=== PATIENT | male | born 1955 | race Caucasian/White ===

== ENCOUNTER 2018-07-22 06:35 | Day surgery (SDC) | payer MEDICAID ==
[~2018-07-22] VITALS: Ht 175.3 cm; Wt 113.9 kg
[~2018-07-22 06:35] MED LIST: AMLO10TA4 PO; ATOR40TA70 PO; BENA40TA9 PO; CYCL5TAB PO; IBUP-1653 PO; METF-414 PO; METO100T16 PO; TAMS0.4C31 PO
[2018-07-22] MEDS ORDERED: FURO-152 PO (08:12)
[2018-07-22] MEDS ORDERED: ASPI-1159 PO (08:12)
[2018-07-22] MEDS ORDERED: CLOP75TA16 PO (08:12)
[2018-07-22] MEDS ORDERED: IODIXANOL 320MG/ML 100 ML BOTTLE IV ONE ×2 (08:38→11:06)
[2018-07-22 08:52] LABS: HEMATOCRIT 43.5 % (42.0-52.0); HEMOGLOBIN 14.6 g/dL (14.0-18.0); MEAN CORPUSCULAR HEMOGLOBIN 28.1 pg (28.0-32.0); MEAN CORPUSCULAR VOLUME 83.6 fL (80.0-94.0); PLATELET 286 x1000/uL (130-400); RED BLOOD CELL COUNT 5.21 mill/uL (4.7-6.1); RED CELL DISTRIBUTION WIDTH 14.1 % (11.6-14.6)
[2018-07-22 09:02] LABS: CHLORIDE 101 mEq/L (98-107)
[2018-07-22 09:04] LABS: INR 1.1; PARTIAL THROMBOPLASTIN TIME 27.6 sec (23.4-31.0); PROTHROMBIN TIME 10.8 sec (9.1-11.1)
[2018-07-22] MEDS ORDERED: KCL 20MEQ/100ML PREMIX 100 ML IV NR (09:45)
[2018-07-22] MEDS ORDERED: MIDAZOLAM HCL 2 MG/2 ML VIAL ONE ×2 (09:59→11:08)
[2018-07-22] MEDS ORDERED: FENTANYL CITRATE/PF 50MCG/ML 2ML VIAL ONE ×2 (09:59→11:08)
[2018-07-22] MEDS ORDERED: LIDOCAINE HCL 1% 20ML VIAL (Pyxis) INJ ONE ×2 (10:17→11:05)
[2018-07-22] MEDS ORDERED: ACETAMINOPHEN 325MG TABLET PO PRN (10:45)
[2018-07-22] MEDS ORDERED: MORPHINE SULFATE 4 MG/ML CPJ (NOT FOR IM USE) IV PRN (10:45)
[2018-07-22] MEDS ORDERED: ONDANSETRON HCL 4MG/2ML INJ IV PRN (10:45)
[2018-07-22] MEDS ORDERED: IOHEXOL-300 100 ML BOTTLE ONE (11:06)
[2018-07-22] MEDS ORDERED: NICARDIPINE 100MCG/ML 10ML VIAL (CATH LAB) IV ONE (13:19)
[2018-07-22] MEDS ORDERED: NITROGLYCERIN 50MCG/ML 10ML VIAL (CATH LAB) IV ONE (13:19)
[2018-07-22] MEDS ORDERED: HEPARIN SODIUM 1,000 UNIT/1ML VIAL IV ONE (14:30)
== END 2018-07-22 15:00 | disposition home or self-care (01) ==
LOC: CCL 06:35
PROVIDERS: ATTEND Internal Medicine Cardiovascular Disease
DX: R07.9 Chest pain, unspecified (principal); Z95.5 Presence of coronary angioplasty implant and graft; I10 Essential (primary) hypertension; E78.5 Hyperlipidemia, unspecified; E11.9 Type 2 diabetes mellitus without complications; E66.01 Morbid (severe) obesity due to excess calories
CPT/HCPCS: 36415; 80048; 85027; 85610; 85730; 93005; 93458; C1769; C1887; C1893; J1644; J2250; J3010; J3480; J3490; Q9967

== ENCOUNTER 2019-01-17 08:11 | Day surgery (SDC) | payer MEDICAID ==
[~2019-01-17] VITALS: Ht 175.3 cm; Wt 110.2 kg
[~2019-01-17 08:11] MED LIST changes: +ASPI-1393 PO; +CLOP75TA4 PO; +FURO-152 PO
[2019-01-17] MEDS ORDERED: NICARDIPINE 100MCG/ML 10ML VIAL (CATH LAB) IV ONE (10:30)
[2019-01-17] MEDS ORDERED: HEPARIN SODIUM 1,000 UNIT/1ML VIAL IV ONE (10:30)
[2019-01-17] MEDS ORDERED: NITROGLYCERIN 50MCG/ML 10ML VIAL (CATH LAB) IV ONE (10:30)
[2019-01-17] MEDS ORDERED: PHENYLEPHRINE 100MCG/ML 10ML VIAL (CATH LAB) IV ONE (10:30)
[2019-01-17 12:34] LABS: HEMATOCRIT 44.1 % (42.0-52.0); HEMOGLOBIN 15.2 g/dL (14.0-18.0); MEAN CORPUSCULAR HEMOGLOBIN 30.2 pg (28.0-32.0); MEAN CORPUSCULAR VOLUME 87.5 fL (80.0-94.0); PLATELET 259 x1000/uL (130-400); RED BLOOD CELL COUNT 5.04 mill/uL (4.7-6.1); RED CELL DISTRIBUTION WIDTH 13.8 % (11.6-14.6)
[2019-01-17 12:38] LABS: INR 1.1; PARTIAL THROMBOPLASTIN TIME 28.6 sec (23.4-31.0); PROTHROMBIN TIME 11.1 sec (9.6-11.0)
[2019-01-17] MEDS ORDERED: DOXA4TAB3 MT (12:39)
[2019-01-17] MEDS ORDERED: RANI150C12 MT (12:39)
[2019-01-17 12:44] LABS: CHLORIDE 103 mEq/L (98-107)
[2019-01-17] MEDS ORDERED: IOHEXOL-300 100 ML BOTTLE ONE (13:41)
[2019-01-17] MEDS ORDERED: LIDOCAINE HCL 1% 20ML VIAL (Pyxis) INJ ONE (13:42)
[2019-01-17] MEDS ORDERED: MIDAZOLAM HCL 2 MG/2 ML VIAL ONE (13:53)
[2019-01-17] MEDS ORDERED: FENTANYL CITRATE/PF 50MCG/ML 2ML VIAL ONE (13:53)
[2019-01-17] MEDS ORDERED: ONDANSETRON HCL 4MG/2ML INJ IV PRN (15:00)
[2019-01-17] MEDS ORDERED: ACETAMINOPHEN 325MG TABLET PO PRN (15:00)
== END 2019-01-17 18:20 | disposition home or self-care (01) ==
LOC: CCL 08:11
PROVIDERS: ATTEND Internal Medicine Cardiovascular Disease
DX: R07.89 Other chest pain (principal); R06.02 Shortness of breath; R94.31 Abnormal electrocardiogram [ECG] [EKG]; I10 Essential (primary) hypertension; E11.9 Type 2 diabetes mellitus without complications; E78.5 Hyperlipidemia, unspecified; I25.10 Atherosclerotic heart disease of native coronary artery without angina pectoris; E66.01 Morbid (severe) obesity due to excess calories; Z86.73 Personal history of transient ischemic attack (TIA), and cerebral infarction without residual deficits; Z79.899 Other long term (current) drug therapy; Z68.35 Body mass index [BMI] 35.0-35.9, adult; Z88.8 Allergy status to other drugs, medicaments and biological substances; Z79.82 Long term (current) use of aspirin
CPT/HCPCS: 36415; 80048; 85027; 85610; 85730; 93458; C1769; C1887; C1893; J1644; J2250; J2370; J3010; J3490; Q9967

== ENCOUNTER 2022-04-01 10:24 | Inpatient (IN) | payer MEDICARE, MEDICAID ==
[~2022-04-01] VITALS: Ht 177.8 cm; Wt 90.3 kg
[~2022-04-01 10:24] MED LIST changes: -ASPI-1393 PO; +ASPI-1497 PO; -BENA40TA9 PO; +BENA40TA91 PO; +CLOP-31 PO; -CLOP75TA4 PO; -CYCL5TAB PO; +DOXA4TAB3 MT; -FURO-152 PO; -METF-414 PO; +RANI150C12 MT
[2022-04-01] MEDS ORDERED: SODIUM CHLORIDE 0.9% 1,000 ML IV ONE (11:15)
[2022-04-01 11:27] LABS: BASOPHILS % 1.1 % (0.0-2.0); EOSINOPHILS % 0.4 % (0.0-5.0); HEMATOCRIT. 37.5 % (42.0-52.0); HEMOGLOBIN. 13.4 g/dL (14.0-18.0); LYMPHOCYTES % 16.1 % (20.0-50.0); MEAN CORPUSCULAR HEMOGLOBIN 31.3 pg (28.0-32.0); MEAN CORPUSCULAR VOLUME 87.3 fL (80.0-94.0); MONOCYTES % 6.7 % (2.0-8.0); NEUTROPHILS % 75.7 % (40.0-76.0); PLATELET 276 x1000/uL (130-400); RED BLOOD CELL COUNT 4.29 mill/uL (4.7-6.1); RED CELL DISTRIBUTION WIDTH 13.2 % (11.6-14.6)
[2022-04-01 11:39] LABS: CHLORIDE 102 mEq/L (98-107); PROTHROMBIN TIME 11.1 sec (9.6-11.0)
[2022-04-01] MEDS ORDERED: VANCOMYCIN 1G PREMIX 200 ML IV ONE (12:00)
[2022-04-01] MEDS ORDERED: PIPERACILLIN/TAZ 3.375G PREMIX 50 ML IV ONE (12:00)
[2022-04-01] MEDS ORDERED: SODIUM CHLORIDE 0.9% 1000ML BAG (SEPSIS BOLUS) IV ONE (12:15)
[2022-04-01 13:06] LABS: CLARITY URINE CLEAR (CLEAR); COLOR URINE DARK YELLOW (YELLOW); KETONES URINE TRACE (NEGATIVE); LEUKOCYTE ESTERASE URINE NEGATIVE (NEGATIVE); NITRITE URINE NEGATIVE (NEGATIVE); OCCULT BLOOD URINE NEGATIVE (NEGATIVE); PROTEIN URINE 1+ (NEGATIVE)
[2022-04-01 15:57] VITALS: BP 165/85
[2022-04-01 16:14] VITALS: BP 160/85
[2022-04-01] MEDS ORDERED: METF-874 PO (16:26)
[2022-04-01] MEDS: METFORMIN HCL 500MG TABLET PO SCH (17:40)
[2022-04-01] MEDS: ASPIRIN 81MG TABLET PO SCH (19:15)
[2022-04-01] MEDS ORDERED: DEXTROSE 50% WATER 50ML SYRINGE IV PRN (19:15)
[2022-04-01 20:00] VITALS: BP 162/84
[2022-04-01] MEDS: ENOXAPARIN 40MG/0.4ML SYR SUBCUT SCH (20:55)
[2022-04-01] MEDS: HYDROCODONE/ACETAMINOPHEN 5/325MG TABLET PO PRN (20:56)
[2022-04-01] MEDS: METOPROLOL TARTRATE 50MG TABLET PO SCH (20:56)
[2022-04-01] MEDS: SODIUM CHLORIDE 0.9% 1,000 ML IV SCH (20:56)
[2022-04-01] MEDS: CEFTRIAXONE 1,000 MG in DEXTROSE 5% WATER 50 ML IV SCH (20:56)
[2022-04-01] MEDS: BLOOD SUGAR DIAGNOSTIC STRIP TEST SCH (20:57)
[2022-04-01] MEDS: CLONIDINE 0.1MG TABLET PO PRN (20:57)
[2022-04-01] MEDS: INSULIN LISPRO 100 UNITS/ML SUBCUT SCH (21:00)
[2022-04-01] MEDS ORDERED: KETOROLAC 15MG/ML VIAL IV PRN (22:00)
[2022-04-02] VITALS: BP_SYST 146; BP_SYST 147; BP_DIAS 77; BP_DIAS 78
[2022-04-02 04:00] VITALS: BP 139/75
[2022-04-02] MEDS: BLOOD SUGAR DIAGNOSTIC STRIP TEST SCH ×4 (05:36→21:35)
[2022-04-02] MEDS: INSULIN LISPRO 100 UNITS/ML SUBCUT SCH ×4 (05:36→21:00)
[2022-04-02 08:00] VITALS: BP 190/92
[2022-04-02 08:18] LABS: EOSINOPHILS % 1.6 % (0.0-5.0); HEMATOCRIT. 33.8 % (42.0-52.0); HEMOGLOBIN. 12.1 g/dL (14.0-18.0); LYMPHOCYTES % 20.8 % (20.0-50.0); MEAN CORPUSCULAR VOLUME 86.9 fL (80.0-94.0); MONOCYTES % 8.2 % (2.0-8.0); NEUTROPHILS % 68.4 % (40.0-76.0); PLATELET 247 x1000/uL (130-400); RED BLOOD CELL COUNT 3.88 mill/uL (4.7-6.1); RED CELL DISTRIBUTION WIDTH 12.9 % (11.6-14.6)
[2022-04-02] MEDS ORDERED: NALOXONE HCL 0.4MG/ML VIAL IV PRN (08:30)
[2022-04-02] MEDS: SODIUM CHLORIDE 0.9% 1,000 ML IV SCH ×2 (08:35→21:44)
[2022-04-02] MEDS: ASPIRIN 81MG TABLET PO SCH (08:51)
[2022-04-02] MEDS: METFORMIN HCL 500MG TABLET PO SCH ×2 (08:51→16:49)
[2022-04-02] MEDS: METOPROLOL TARTRATE 50MG TABLET PO SCH ×2 (08:52→21:43)
[2022-04-02] MEDS: AMLODIPINE 10MG TABLET PO SCH (08:52)
[2022-04-02] MEDS: CLONIDINE 0.1MG TABLET PO PRN ×2 (08:54→16:47)
[2022-04-02] MEDS: POLYETHYLENE GLYCOL 3350 (17GM) 1 DOSE PACK PO SCH (09:31)
[2022-04-02 09:40] LABS: CHLORIDE 102 mEq/L (98-107)
[2022-04-02 09:49] LABS: HDL CHOLESTEROL 32 mg/dL (40-59); LDL CHOLESTEROL 33 mg/dL (5-100)
[2022-04-02 12:00] VITALS: BP 158/73
[2022-04-02] MEDS ORDERED: POTASSIUM CHLORIDE 20MEQ TABLET SR PO NR (15:45)
[2022-04-02 16:00] VITALS: BP 174/70
[2022-04-02] MEDS: HYDROCODONE/ACETAMINOPHEN 5/325MG TABLET PO PRN ×2 (16:49→22:37)
[2022-04-02 20:00] VITALS: BP_SYST 149; BP_SYST 177; BP_DIAS 84; BP_DIAS 99
[2022-04-02] MEDS: ENOXAPARIN 40MG/0.4ML SYR SUBCUT SCH (21:43)
[2022-04-02] MEDS: HYDRALAZINE HCL 50MG TABLET PO SCH (21:43)
[2022-04-02] MEDS: CEFTRIAXONE 1,000 MG in DEXTROSE 5% WATER 50 ML IV SCH (21:43)
[2022-04-02] MEDS: ACETAMINOPHEN 325MG TABLET PO PRN (22:40)
[2022-04-03] VITALS: BP 149/99
[2022-04-03] MEDS: ACETAMINOPHEN 325MG TABLET PO PRN ×2 (02:46→13:19)
[2022-04-03] MEDS: HYDROCODONE/ACETAMINOPHEN 5/325MG TABLET PO PRN ×3 (02:46→13:19)
[2022-04-03 04:00] VITALS: BP 144/84
[2022-04-03] MEDS: BLOOD SUGAR DIAGNOSTIC STRIP TEST SCH ×2 (05:12→12:10)
[2022-04-03] MEDS: INSULIN LISPRO 100 UNITS/ML SUBCUT SCH ×2 (05:12→12:40)
[2022-04-03 08:00] VITALS: BP 184/80
[2022-04-03] MEDS: CLONIDINE 0.1MG TABLET PO PRN (08:26)
[2022-04-03] MEDS: HYDRALAZINE HCL 50MG TABLET PO SCH (08:26)
[2022-04-03] MEDS: METFORMIN HCL 500MG TABLET PO SCH (08:27)
[2022-04-03] MEDS: METOPROLOL TARTRATE 50MG TABLET PO SCH (08:27)
[2022-04-03] MEDS: AMLODIPINE 10MG TABLET PO SCH (08:27)
[2022-04-03] MEDS: ASPIRIN 81MG TABLET PO SCH (08:27)
[2022-04-03] MEDS: POLYETHYLENE GLYCOL 3350 (17GM) 1 DOSE PACK PO SCH (08:28)
[2022-04-03 10:24] VITALS: BP 184/80
[2022-04-03 12:00] VITALS: BP 139/71
[2022-04-03 13:19] VITALS: BP 139/71
[2022-04-03] MEDS ORDERED: HYDRALAZINE HCL 100MG TABLET PO SCH (15:00)
== END 2022-04-03 14:20 | disposition home or self-care (01) | DRG 637 ==
LOC: ER 10:24 → EDBEDREQ 11:04 → EDBEDREQTM 11:54 → EDBEDREQSVC 11:54 → 8WST 13:45 → EDBEDREQ 13:58 → EDBEDREQTM 13:58 → ENRESERV 14:46
PROVIDERS: ADMIT Internal Medicine; ATTEND Internal Medicine
DX: E11.9 Type 2 diabetes mellitus without complications (principal); N17.0 Acute kidney failure with tubular necrosis; E87.6 Hypokalemia; I10 Essential (primary) hypertension; Z86.73 Personal history of transient ischemic attack (TIA), and cerebral infarction without residual deficits; Z88.8 Allergy status to other drugs, medicaments and biological substances; Z79.899 Other long term (current) drug therapy
CPT/HCPCS: 36415; 71045; 80053; 80061; 81003; 82962; 83036; 83605; 84145; 85025; 97161; 99291; J0696; J1650; J1885; J2543; J3370; J7030; J7060

== ENCOUNTER 2023-03-21 21:49 | Emergency (ER) | payer MEDICARE, MEDICAID ==
[~2023-03-21] VITALS: Ht 175.3 cm; Wt 87.0 kg
[~2023-03-21 21:49] MED LIST changes: +METF-874 PO
[2023-03-21 21:57] VITALS: O2SAT 97
[2023-03-21] MEDS ORDERED: DOXAZOSIN MESYLATE 4MG TABLET PO ONE (22:45)
[2023-03-21 23:23] LABS: HEMATOCRIT 28.4 % (42.0-52.0); HEMOGLOBIN 9.3 g/dL (14.0-18.0); MEAN CORPUSCULAR HEMOGLOBIN 27.9 pg (28.0-32.0); MEAN CORPUSCULAR HGB CONC 32.6 g/dL (31.0-37.0); MEAN CORPUSCULAR VOLUME 85.6 fL (80.0-94.0); PLATELET 199 x1000/uL (130-400); RED BLOOD CELL COUNT 3.32 mill/uL (4.7-6.1); RED CELL DISTRIBUTION WIDTH 15.5 % (11.6-14.6); WHITE BLOOD COUNT 6.1 x1000/uL (4.5-11.0)
[2023-03-21 23:31] LABS: CHLORIDE 105 mEq/L (98-107); INDEX HEMOLYSI 1 (1-3); INDEX ICTERIC 1 (1-4); INDEX LIPEMIC 1 (1-3); POTASSIUM 3.3 mEq/L (3.5-5.1); SODIUM 139 mEq/L (136-145)
[2023-03-21 23:33] LABS: CALCIUM 8.8 mg/dL (8.5-10.1)
[2023-03-21 23:39] LABS: ALANINE AMINOTRANSFERASE 19 IU/L (13-61); ALBUMIN 3.5 g/dL (3.4-5.0); ASPARTATE AMINOTRANSFERASE 16 IU/L (15-37); BILIRUBIN TOTAL 0.3 mg/dL (0.1-1.0); CARBON DIOXIDE 30 mEq/L (21-32); CREATININE 0.8 mg/dL (0.6-1.3); GLUCOSE 136 mg/dL (70-105); PROTEIN TOTAL 6.5 g/dL (6.0-8.3); UREA NITROGEN BLOOD 25 mg/dL (7-21)
[2023-03-21] MEDS ORDERED: POTASSIUM CHLORIDE 20MEQ TABLET SR PO NR (23:45)
[2023-03-22] MEDS ORDERED: POTASSIUM CHLORIDE 20MEQ TABLET SR PO NR (01:45)
[2023-03-22 01:50] VITALS: TEMP 98.5
[2023-03-22 03:45] VITALS: BP 180/70; PULSE 68; RESP 16
== END 2023-03-22 04:31 | disposition home or self-care (01) ==
LOC: ER 21:49
DX: I11.0 Hypertensive heart disease with heart failure (principal); E87.6 Hypokalemia; I50.9 Heart failure, unspecified; E11.9 Type 2 diabetes mellitus without complications; Z86.73 Personal history of transient ischemic attack (TIA), and cerebral infarction without residual deficits; Z79.899 Other long term (current) drug therapy
CPT/HCPCS: 36415; 80053; 85027; 93005; 99284